=== PATIENT | female | born 1985 | race Caucasian/White ===

== ENCOUNTER 2016-08-06 00:38 | Emergency (ER) | payer SELFPAY ==
--- NOTE | 2016-08-06 02:38 | ED NURSING NOTES ---
Clinical Report - Nurses [facility] [address] [place] [address] 08/06/2016 0:42 Patient: ANNA BANEGAS [facility]#: [id number] TRIAGE Triage time 00:56 Aug 06 2016. Acuity: LEVEL 4. Chief Complaint: (left arm pain). 00:56 08/06/16. SEPSIS SCREEN: Sepsis Screen. Negative (no infection suspected/documented). ABRAHAM COMA SCORE: Abraham Coma Scale: 15- eyes open spontaneously (4); best verbal response- oriented x 4 (5); best motor response- obeys commands (6). --00:59 Aida Frost R.N. 00:56 08/06/16. BP: 129/80. HR: 73. RR: 18. O2 saturation: 100%. Temp: 98.1 F. Pain level now: 09/27. --00:59 Aida Frost R.N. Weight: 81.6 kg stated. Height/Length: 62 inches Per Patient. BMI: 32.9. --00:56 Aida Frost R.N. Medications None. --00:57 Aida Frost R.N. Medication/allergy information source: the patient. --00:59 Aida Frost R.N. Allergies No Known Drug Allergy. --00:57 Aida Frost R.N. History Arrived by private vehicle. Historian: patient. Accompanied by family and spouse. Onset. (2 months ago). ( acutely worse in last 24 hours. 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 NO trauma Patient states similar but worse than carpal tunnel she had on right side). No fever, weakness, cough, difficulty breathing or skin rash. Denies muscle aches. PAST MEDICAL HX: The patient has had a hysterectomy. SOCIAL HX: Light tobacco smoker (cigarette)- less than 1/2 a pack per day. No alcohol use or drug use. No infectious disease exposure. ABUSE ASSESSMENT: No report of abuse. NUTRITIONAL RISK ASSESSMENT: The nutritional risk assessment revealed no deficiencies. FUNCTIONAL ASSESSMENT: Functional assessment: no impairments noted. LEARNING NEEDS ASSESSMENT: The learning needs assessment revealed no barriers. SKIN INTEGRITY ASSESSMENT: Skin integrity risk assessment completed. No skin integrity risk identified. --00:59 Aida Frost R.N. PROBLEMS: Pyelonephritis. Peripheral Nerve Entrapment. --00:57 Aida Frost R.N. ADDITIONAL SURGERIES: Carpal Tunnel Surgery. . Hysterectomy. Tubal Ligation. --00:57 Aida Frost R.N. Interventions ID band on patient. --00:59 Aida Frost R.N. PHYSICAL ASSESSMENT 01:01 08/06/16. Ambulatory to room. GENERAL / NEURO / PSYCH: Alert. Oriented X 4. HEENT: Mucous membranes are pink. CVS: Pulses within normal limits. EXTREMITIES: Capillary refill is less than 2 seconds in the extremities. Extremity pulses are within normal limits. No clubbing present. SKIN: Skin intact. Skin is warm and dry. Normal skin turgor. --01:01 Aida Frost R.N. NURSING PROGRESS NOTES 01:08/06/16. The initial plan of care for this patient includes an assessment with efforts to address impairment of the musculoskeletal system. This plan of care was discussed with the patient. Patient gowned. Reassurance given. Patient identifiers checked. Call light placed in reach. Side rails up x 1. Bed placed in lowest position. Brakes of bed on. Patient ready for evaluation. --01:01 Aida Frost R.N. DISPOSITION / DISCHARGE 02:50 08/06/16. Condition at departure: improved and stable. The goals identified in the patient's plan of care were met. No learning barriers present. Reviewed medication(s) side effects, precautions, dosing and course information. Prescription(s) given to the patient (PO Toradol). Reviewed referral to an orthopedic surgeon and a hand surgeon and primary care physician for followup. Summary of care provided to patient via paper. Patient verbalized understanding. Written instructions provided in Chinese. The patient was discharged home and accompanied by spouse. She left the Emergency Department ambulatory and via private vehicle. Spouse driving. --02:50 Aida Frost R.N. 00:56 08/06/16. BP: 129/80. HR: 73. RR: 18. O2 saturation: 100%. Temp: 98.1 F. Pain level now: 09/27. --02:50 Aida Frost R.N. Locked/Released at 08/06/2016 2:51 by Aida Frost R.N.
--- NOTE | 2016-08-06 02:38 | ED CLINICAL REPORT ---
Clinical Report - Physicians/Mid Levels [facility] [address] [place] [address] 08/06/2016 0:42 [id number] Time Seen: 01:24. Arrived- By private vehicle. Historian- patient. HISTORY OF PRESENT ILLNESS Chief Complaint: UPPER EXTREMITY PAIN. This started about 2 months ago and is still present and now worse. It was gradual in onset and has been constant and waxing/waning. Severity is described as being .it has become recently worse. The quality is noted to be aching and "pain". Symptoms located in the area of the left elbow, left forearm and left hand. Repetitive hand use at work. (She describes numbness and tingling in her third fourth and fifth fingers on the left-hand side). Patient denies an injury. Similar symptoms previously: ( she had similar pain in the past on the right-hand side which was diagnosed and treated as carpal tunnel syndrome.). REVIEW OF SYSTEMS No chills, fever, sweats, calf pain or chest pain. No cough, difficulty breathing, pedal edema, palpitations or abdominal pain. No constipation, diarrhea, nausea, vomiting or urinary problems. All systems otherwise negative, except as recorded above. PAST HISTORY History of carpal tunnel syndrome. Problems: Abscess. Pyelonephritis. Pelvic Pain. Peripheral Nerve Entrapment. Abdominal Pain. Headache. Additional Surgeries: Carpal Tunnel Surgery. . Hysterectomy. Tubal Ligation. Medications: None. Allergies: No Known Drug Allergy. SOCIAL HISTORY Current every day light tobacco smoker (cigarette)- less than 1/2 a pack per day. No alcohol use or drug use. FAMILY HISTORY Denies family medical history. ADDITIONAL NOTES The nursing notes have been reviewed. PHYSICAL EXAM Vital Signs: 08/06/2016 00:56 BP: 129/80. HR: 73. RR: 18. O2 saturation: 100%. Temp: 98.1 F. Pain level now: 6/10. Have been reviewed. Appearance: Alert. No acute distress. Eyes: Pupils equal, round and reactive to light. ENT: Pharynx normal. Neck: Normal inspection. Neck supple. CVS: Normal heart rate and rhythm. Heart sounds normal. Respiratory: No respiratory distress. Breath sounds normal. Abdomen: Soft and nontender. No organomegaly. Back: Normal inspection. Extremities: Upper extremities normal to inspection. Upper extremities exhibit normal ROM. Upper extremities nontender. No upper extremity edema. Negative Tinel sign. Negative Meaghan test. Extremities otherwise negative. Neuro: Sensory deficit present. (L hand). Altered sensation to light touch on the left arm. The sensory deficit corresponds to a peripheral nerve, specifically the ulnar nerve. PROGRESS AND PROCEDURES Course of Care: Patient is stable. Patient/family counseled. Old medical records reviewed. Disposition: Discharged. Condition: stable. CLINICAL IMPRESSION Chronic upper extremity pain involving the left elbow, left forearm, left wrist and left hand (cubital tunnel syndrome). Neuropathy. INSTRUCTIONS Warnings: Further evaluation is necessary. GENERAL WARNINGS: Return or contact your physician immediately if your condition worsens or changes unexpectedly, if not improving as expected, or if other problems arise. Prescription Medications: Ketorolac 10 mg tablets: Take 1 tablet orally every 6 hours as needed. Dispense fifteen (15). No refills. Follow-up: Follow up with your doctor in seven days. Call for the next available appointment. Follow up with an orthopedic surgeon- as recommended by your primary care physician. Understanding of the discharge instructions verbalized by patient. (Electronically signed by Brayan Keller MD 08/08/2016 9:43)
--- NOTE | 2016-08-06 02:38 | ED NURSING NOTES ---
Clinical Report - Nurses [facility] [address] [place] [address] 08/06/2016 0:42 Patient: ANNA BANEGAS [facility]#: [id number] TRIAGE Triage time 00:56 Aug 06 2016. Acuity: LEVEL 4. Chief Complaint: (left arm pain). 00:56 08/06/16. SEPSIS SCREEN: Sepsis Screen. Negative (no infection suspected/documented). ABRAHAM COMA SCORE: Abraham Coma Scale: 15- eyes open spontaneously (4); best verbal response- oriented x 4 (5); best motor response- obeys commands (6). --00:59 Aida Frost R.N. 00:56 08/06/16. BP: 129/80. HR: 73. RR: 18. O2 saturation: 100%. Temp: 98.1 F. Pain level now: 09/27. --00:59 Aida Frost R.N. Weight: 81.6 kg stated. Height/Length: 62 inches Per Patient. BMI: 32.9. --00:56 Aida Frost R.N. Medications None. --00:57 Aida Frost R.N. Medication/allergy information source: the patient. --00:59 Aida Frost R.N. Allergies No Known Drug Allergy. --00:57 Aida Frost R.N. History Arrived by private vehicle. Historian: patient. Accompanied by family and spouse. Onset. (2 months ago). ( acutely worse in last 24 hours. 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 No fever, weakness, cough, difficulty breathing or skin rash. Denies muscle aches. PAST MEDICAL HX: The patient has had a hysterectomy. SOCIAL HX: Light tobacco smoker (cigarette)- less than 1/2 a pack per day. No alcohol use or drug use. No infectious disease exposure. ABUSE ASSESSMENT: No report of abuse. NUTRITIONAL RISK ASSESSMENT: The nutritional risk assessment revealed no deficiencies. FUNCTIONAL ASSESSMENT: Functional assessment: no impairments noted. LEARNING NEEDS ASSESSMENT: The learning needs assessment revealed no barriers. SKIN INTEGRITY ASSESSMENT: Skin integrity risk assessment completed. No skin integrity risk identified. --00:59 Aida Frost R.N. PROBLEMS: Pyelonephritis. Peripheral Nerve Entrapment. --00:57 Aida Frost R.N. ADDITIONAL SURGERIES: Carpal Tunnel Surgery. . Hysterectomy. Tubal Ligation. --00:57 Aida Frost R.N. Interventions ID band on patient. --00:59 Aida Frost R.N. PHYSICAL ASSESSMENT 01:01 08/06/16. Ambulatory to room. GENERAL / NEURO / PSYCH: Alert. Oriented X 4. HEENT: Mucous membranes are pink. CVS: Pulses within normal limits. EXTREMITIES: Capillary refill is less than 2 seconds in the extremities. Extremity pulses are within normal limits. No clubbing present. SKIN: Skin intact. Skin is warm and dry. Normal skin turgor. --01:01 Aida Frost R.N. NURSING PROGRESS NOTES 01:08/06/16. The initial plan of care for this patient includes an assessment with efforts to address impairment of the musculoskeletal system. This plan of care was discussed with the patient. Patient gowned. Reassurance given. Patient identifiers checked. Call light placed in reach. Side rails up x 1. Bed placed in lowest position. Brakes of bed on. Patient ready for evaluation. --01:01 Aida Frost R.N. DISPOSITION / DISCHARGE 02:50 08/06/16. Condition at departure: improved and stable. The goals identified in the patient's plan of care were met. No learning barriers present. Reviewed medication(s) side effects, precautions, dosing and course information. Prescription(s) given to the patient (PO Toradol). Reviewed referral to an orthopedic surgeon and a hand surgeon and primary care physician for followup. Summary of care provided to patient via paper. Patient verbalized understanding. Written instructions provided in Mongolian. The patient was discharged home and accompanied by spouse. She left the Emergency Department ambulatory and via private vehicle. Spouse driving. --02:50 Aida Frost R.N. 00:56 08/06/16. BP: 129/80. HR: 73. RR: 18. O2 saturation: 100%. Temp: 98.1 F. Pain level now: 09/27. --02:50 Aida Frost R.N. Locked/Released at 08/06/2016 2:51 by Aida Frost R.N.
--- NOTE | 2016-08-06 02:38 | ED CLINICAL REPORT ---
Clinical Report - Physicians/Mid Levels [facility] [address] [place] [address] 08/06/2016 0:42 [id number] Time Seen: 01:24. Arrived- By private vehicle. Historian- patient. HISTORY OF PRESENT ILLNESS Chief Complaint: UPPER EXTREMITY PAIN. This started about 2 months ago and is still present and now worse. It was gradual in onset and has been constant and waxing/waning. Severity is described as being .it has become recently worse. The quality is noted to be aching and "pain". Symptoms located in the area of the left elbow, left forearm and left hand. Repetitive hand use at work. (She describes numbness and tingling in her third fourth and fifth fingers on the left-hand side). Patient denies an injury. Similar symptoms previously: ( she had similar pain in the past on the right-hand side which was diagnosed and treated as carpal tunnel syndrome.). REVIEW OF SYSTEMS No chills, fever, sweats, calf pain or chest pain. No cough, difficulty breathing, pedal edema, palpitations or abdominal pain. No constipation, diarrhea, nausea, vomiting or urinary problems. All systems otherwise negative, except as recorded above. PAST HISTORY History of carpal tunnel syndrome. Problems: Abscess. Pyelonephritis. Pelvic Pain. Peripheral Nerve Entrapment. Abdominal Pain. Headache. Additional Surgeries: Carpal Tunnel Surgery. . Hysterectomy. Tubal Ligation. Medications: None. Allergies: No Known Drug Allergy. SOCIAL HISTORY Current every day light tobacco smoker (cigarette)- less than 1/2 a pack per day. No alcohol use or drug use. FAMILY HISTORY Denies family medical history. ADDITIONAL NOTES The nursing notes have been reviewed. PHYSICAL EXAM Vital Signs: 08/06/2016 00:56 BP: 129/80. HR: 73. RR: 18. O2 saturation: 100%. Temp: 98.1 F. Pain level now: 6/10. Have been reviewed. Appearance: Alert. No acute distress. Eyes: Pupils equal, round and reactive to light. ENT: Pharynx normal. Neck: Normal inspection. Neck supple. CVS: Normal heart rate and rhythm. Heart sounds normal. Respiratory: No respiratory distress. Breath sounds normal. Abdomen: Soft and nontender. No organomegaly. Back: Normal inspection. Extremities: Upper extremities normal to inspection. Upper extremities exhibit normal ROM. Upper extremities nontender. No upper extremity edema. Negative Tinel sign. Negative Meaghan test. Extremities otherwise negative. Neuro: Sensory deficit present. (L hand). Altered sensation to light touch on the left arm. The sensory deficit corresponds to a peripheral nerve, specifically the ulnar nerve. PROGRESS AND PROCEDURES Course of Care: Patient is stable. Patient/family counseled. Old medical records reviewed. Disposition: Discharged. Condition: stable. CLINICAL IMPRESSION Chronic upper extremity pain involving the left elbow, left forearm, left wrist and left hand (cubital tunnel syndrome). Neuropathy. INSTRUCTIONS Warnings: Further evaluation is necessary. GENERAL WARNINGS: Return or contact your physician immediately if your condition worsens or changes unexpectedly, if not improving as expected, or if other problems arise. Prescription Medications: Ketorolac 10 mg tablets: Take 1 tablet orally every 6 hours as needed. Dispense fifteen (15). No refills. Follow-up: Follow up with your doctor in seven days. Call for the next available appointment. Follow up with an orthopedic surgeon- as recommended by your primary care physician. Understanding of the discharge instructions verbalized by patient. (Electronically signed by Brayan Keller MD 08/08/2016 9:43)
--- NOTE | 2016-08-08 09:43 | ED DISCHARGE INSTRUCTIONS ---
Patient: ANNA BANEGAS General Instructions [facility] VisitID: [id number] [place] [address] 30y, F Registration Date/Time: 08/06/2016 Chronic upper extremity pain involving the left elbow, left forearm, left wrist and left hand (cubital tunnel syndrome). Neuropathy. INSTRUCTIONS Warnings: Further evaluation is necessary. GENERAL WARNINGS: Return or contact your physician immediately if your condition worsens or changes unexpectedly, if not improving as expected, or if other problems arise. Prescription Medications: Ketorolac 10 mg tablets: Take 1 tablet orally every 6 hours as needed. Dispense fifteen (15). No refills. Follow-up: Follow up with your doctor in seven days. Call for the next available appointment. Follow up with an orthopedic surgeon- as recommended by your primary care physician. Understanding of the discharge instructions verbalized by patient. ADDITIONAL INFORMATION Ulnar Nerve Palsy The ulnar nerve travels down the arm, passing along the inside of the elbow. It controls movement and feeling in the wrist and hand. Palsy of the ulnar nerve occurs when there is injury to this nerve. The most common cause of ulnar nerve palsy is leaning on the elbow for long periods of time. An elbow fracture or dislocation can also injure the nerve. There are other causes, too. Ulnar nerve palsy causes a [id number] feeling and weakness in the hand. If the condition is prolonged, the muscles of the hand become thin and tight. The fingers bend into a contracted position. Treatment of permanent nerve damage involves physical therapy to prevent tightening of the muscles of the hand. Home Care Avoid resting your weight on your elbows when sitting at a table or riding in a vehicle. If you were given a sling, wear it as directed for support. Rest the arm until you get normal feeling and strength back. Follow Up with your doctor or as advised by our staff. Get Prompt Medical Attention if any of the following occur: Increasing arm swelling or pain Numbness or weakness of the face or leg Slurred speech, confusion, trouble speaking, walking or seeing Ketorolac Tromethamine Oral tablet What is this medicine? KETOROLAC (kiel toe ROLE ak) is a non-steroidal anti-inflammatory drug (NSAID). It is used for a short while to treat moderate to severe pain, including pain after surgery. It should not be used for more than 5 days. How should I use this medicine? Take this medicine by mouth with a full glass of water. Follow the directions on the prescription label. Take your medicine at regular intervals. Do not take your medicine more often than directed. Do not take more than the recommended dose. A special MedGuide will be given to you by the pharmacist with each prescription and refill. Be sure to read this information carefully each time. Talk to your car unloader helper regarding the use of this medicine in children. While this drug may be prescribed for children as young as 16 years of age for selected conditions, precautions do apply. Patients over 65 years old may have a stronger reaction and need a smaller dose. What side effects may I notice from receiving this medicine? Side effects that you should report to your doctor or health cardiac care nurse as soon as possible: allergic reactions like skin rash, itching or hives, swelling of the face, lips, or tongue black or tarry stools breathing problems changes in vision chest pain high blood pressure nausea or vomiting redness, blistering, peeling or loosening of the skin, including inside the mouth severe abdominal pain slurred speech or weakness on one side of the body unexplained weight gain or swelling unusual bleeding or bruising unusually weak or tired yellowing of eyes or skin Side effects that usually do not require medical attention (report to your doctor or health cardiac care nurse if they continue or are bothersome): diarrhea dizziness headache heartburn What may interact with this medicine? Do not take this medicine with any of the following medications: aspirin and aspirin-like medicines cidofovir methotrexate NSAIDs, medicines for pain and inflammation, like ibuprofen or naproxen pemetrexed probenecid This medicine may also interact with the following medications: alcohol alendronate alprazolam carbamazepine cyclosporine diuretics flavocoxid fluoxetine ginkgo lithium medicines for high blood pressure like enalapril medicines that affect platelets like pentoxifylline medicines that treat or prevent blood clots like heparin, warfarin muscle relaxants phenytoin steroid medicines like prednisone or cortisone thiothixene What if I miss a dose? If you miss a dose, take it as soon as you can. If it is almost time for your next dose, take only that dose. Do not take double or extra doses. Where should I keep my medicine? Keep out of the reach of children. Store at room temperature between 20 and 25 degrees C (68 and 77 degrees F). Throw away any unused medicine after the expiration date. What should I tell my health care provider before I take this medicine? They need to know if you have any of these conditions: asthma bleeding problems like hemophilia cigarette smoker drink more than 3 alcohol containing drinks a day heart disease or circulation problems such as heart failure or leg edema (fluid retention) high blood pressure kidney disease liver disease stomach bleeding or ulcers an unusual or allergic reaction to ketorolac, aspirin, other NSAIDs, other medicines, foods, dyes, or preservatives or trying to get breast-feeding What should I watch for while using this medicine? Tell your doctor or health cardiac care nurse if your pain does not get better. Talk to your doctor before taking another medicine for pain. Do not treat yourself. This medicine does not prevent heart attack or stroke. In fact, this medicine may increase the chance of a heart attack or stroke. The chance may increase with longer use of this medicine and in people who have heart disease. If you take aspirin to prevent heart attack or stroke, talk with your doctor or health cardiac care nurse. Do not take medicines such as ibuprofen and naproxen with this medicine. Side effects such as stomach upset, nausea, or ulcers may be more likely to occur. Many medicines available without a prescription should not be taken with this medicine. This medicine can cause ulcers and bleeding in the stomach and intestines at any time during treatment. Do not smoke cigarettes or drink alcohol. These increase irritation to your stomach and can make it more susceptible to damage from this medicine. Ulcers and bleeding can happen without warning symptoms and can cause . You may get drowsy or dizzy. Do not drive, use machinery, or do anything that needs mental alertness until you know how this medicine affects you. Do not stand or sit up quickly, especially if you are an older patient. This reduces the risk of dizzy or fainting spells. This medicine can cause you to bleed more easily. Try to avoid damage to your teeth and gums when you brush or floss your teeth. You have been given the following additional information: Ulnar Nerve Palsy Ketorolac Tromethamine Oral tablet (Electronically signed by Brayan Keller MD 08/08/2016 9:43)
--- NOTE | 2016-08-08 09:43 | ED MAR SUMMARY ---
..... Medication Administration Record [facility] [address] [id number] Patient: BARNARDTRUNG JO ANNA C Visit ID: [id number] 30y, F Weight: 81.6 kg Height/Length: 62 in BMI: 32.9 ALLERGIES: No Known Drug Allergy
--- NOTE | 2016-08-08 09:43 | ED MAR SUMMARY ---
..... Medication Administration Record [facility] [address], [place] [id number] Patient: BARNARDTRUNG JO ANNA C Visit ID: [id number] 30y, F Weight: 81.6 kg Height/Length: 62 in BMI: 32.9 ALLERGIES: No Known Drug Allergy
--- NOTE | 2016-08-08 09:43 | ED DISCHARGE INSTRUCTIONS ---
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 Neuropathy. INSTRUCTIONS Warnings: Further evaluation is necessary. GENERAL WARNINGS: Return or contact your physician immediately if your condition worsens or changes unexpectedly, if not improving as expected, or if other problems arise. Prescription Medications: Ketorolac 10 mg tablets: Take 1 tablet orally every 6 hours as needed. Dispense fifteen (15). No refills. Follow-up: Follow up with your doctor in seven days. Call for the next available appointment. Follow up with an orthopedic surgeon- as recommended by your primary care physician. Understanding of the discharge instructions verbalized by patient. ADDITIONAL INFORMATION Ulnar Nerve Palsy The ulnar nerve travels down the arm, passing along the inside of the elbow. It controls movement and feeling in the wrist and hand. Palsy of the ulnar nerve occurs when there is injury to this nerve. The most common cause of ulnar nerve palsy is leaning on the elbow for long periods of time. An elbow fracture or dislocation can also injure the nerve. There are other causes, too. Ulnar nerve palsy causes a [id number] feeling and weakness in the hand. If the condition is prolonged, the muscles of the hand become thin and tight. The fingers bend into a contracted position. Treatment of permanent nerve damage involves physical therapy to prevent tightening of the muscles of the hand. Home Care Avoid resting your weight on your elbows when sitting at a table or riding in a vehicle. If you were given a sling, wear it as directed for support. Rest the arm until you get normal feeling and strength back. Follow Up with your doctor or as advised by our staff. Get Prompt Medical Attention if any of the following occur: Increasing arm swelling or pain Numbness or weakness of the face or leg Slurred speech, confusion, trouble speaking, walking or seeing Ketorolac Tromethamine Oral tablet What is this medicine? KETOROLAC (kiel toe ROLE ak) is a non-steroidal anti-inflammatory drug (NSAID). It is used for a short while to treat moderate to severe pain, including pain after surgery. It should not be used for more than 5 days. How should I use this medicine? Take this medicine by mouth with a full glass of water. Follow the directions on the prescription label. Take your medicine at regular intervals. Do not take your medicine more often than directed. Do not take more than the recommended dose. A special MedGuide will be given to you by the pharmacist with each prescription and refill. Be sure to read this information carefully each time. Talk to your specialty person regarding the use of this medicine in children. While this drug may be prescribed for children as young as 16 years of age for selected conditions, precautions do apply. Patients over 65 years old may have a stronger reaction and need a smaller dose. What side effects may I notice from receiving this medicine? Side effects that you should report to your doctor or health client care coordinator as soon as possible: allergic reactions like skin rash, itching or hives, swelling of the face, lips, or tongue black or tarry stools breathing problems changes in vision chest pain high blood pressure nausea or vomiting redness, blistering, peeling or loosening of the skin, including inside the mouth severe abdominal pain slurred speech or weakness on one side of the body unexplained weight gain or swelling unusual bleeding or bruising unusually weak or tired yellowing of eyes or skin Side effects that usually do not require medical attention (report to your doctor or health client care coordinator if they continue or are bothersome): diarrhea dizziness headache heartburn What may interact with this medicine? Do not take this medicine with any of the following medications: aspirin and aspirin-like medicines cidofovir methotrexate NSAIDs, medicines for pain and inflammation, like ibuprofen or naproxen pemetrexed probenecid This medicine may also interact with the following medications: alcohol alendronate alprazolam carbamazepine cyclosporine diuretics flavocoxid fluoxetine ginkgo lithium medicines for high blood pressure like enalapril medicines that affect platelets like pentoxifylline medicines that treat or prevent blood clots like heparin, warfarin muscle relaxants phenytoin steroid medicines like prednisone or cortisone thiothixene What if I miss a dose? If you miss a dose, take it as soon as you can. If it is almost time for your next dose, take only that dose. Do not take double or extra doses. Where should I keep my medicine? Keep out of the reach of children. Store at room temperature between 20 and 25 degrees C (68 and 77 degrees F). Throw away any unused medicine after the expiration date. What should I tell my health care provider before I take this medicine? They need to know if you have any of these conditions: asthma bleeding problems like hemophilia cigarette smoker drink more than 3 alcohol containing drinks a day heart disease or circulation problems such as heart failure or leg edema (fluid retention) high blood pressure kidney disease liver disease stomach bleeding or ulcers an unusual or allergic reaction to ketorolac, aspirin, other NSAIDs, other medicines, foods, dyes, or preservatives or trying to get breast-feeding What should I watch for while using this medicine? Tell your doctor or health client care coordinator if your pain does not get better. Talk to your doctor before taking another medicine for pain. Do not treat yourself. This medicine does not prevent heart attack or stroke. In fact, this medicine may increase the chance of a heart attack or stroke. The chance may increase with longer use of this medicine and in people who have heart disease. If you take aspirin to prevent heart attack or stroke, talk with your doctor or health client care coordinator. Do not take medicines such as ibuprofen and naproxen with this medicine. Side effects such as stomach upset, nausea, or ulcers may be more likely to occur. Many medicines available without a prescription should not be taken with this medicine. This medicine can cause ulcers and bleeding in the stomach and intestines at any time during treatment. Do not smoke cigarettes or drink alcohol. These increase irritation to your stomach and can make it more susceptible to damage from this medicine. Ulcers and bleeding can happen without warning symptoms and can cause . You may get drowsy or dizzy. Do not drive, use machinery, or do anything that needs mental alertness until you know how this medicine affects you. Do not stand or sit up quickly, especially if you are an older patient. This reduces the risk of dizzy or fainting spells. This medicine can cause you to bleed more easily. Try to avoid damage to your teeth and gums when you brush or floss your teeth. You have been given the following additional information: Ulnar Nerve Palsy Ketorolac Tromethamine Oral tablet (Electronically signed by Brayan Keller MD 08/08/2016 9:43)
--- NOTE | 2016-08-08 09:43 | ED MED RECONCILIATION SUMMARY ---
Patient: BARNARD LOPEZCYRILANNA Annette Medication Reconciliation Report [facility] VisitID: [id number] [address] [place] [address] 30y, F Registration Date/Time: 08/06/2016 Weight: 81.6 kg Height/Length: 62 in. BMI: 32.9 ALLERGIES: No Known Drug Allergy The patient's Home Medications are listed below: NONE. The source(s) of the original Home Medication information: patient The following Medications were given to the patient in the Emergency Department: None. The following Medications were prescribed to the patient: Ketorolac 10 mg tablets: Take 1 tablet orally every 6 hours as needed. Dispense fifteen (15). No refills. -- Brayan Keller MD
--- NOTE | 2016-08-08 09:43 | ED MED RECONCILIATION SUMMARY ---
Patient: BARNARD LOPEZCYRILANNA Annette Medication Reconciliation Report [facility] VisitID: [id number] [address] [place] [address] 30y, F Registration Date/Time: 08/06/2016 Weight: 81.6 kg Height/Length: 62 in. BMI: 32.9 ALLERGIES: No Known Drug Allergy The patient's Home Medications are listed below: NONE. The source(s) of the original Home Medication information: patient The following Medications were given to the patient in the Emergency Department: None. The following Medications were prescribed to the patient: Ketorolac 10 mg tablets: Take 1 tablet orally every 6 hours as needed. Dispense fifteen (15). No refills. -- Brayan Keller MD
== END 2016-08-06 02:51 | disposition home or self-care (01) ==
LOC: ED SRH 00:38
DX: M79.601 Pain in right arm (principal); G90.09 Other idiopathic peripheral autonomic neuropathy; G56.20 Lesion of ulnar nerve, unspecified upper limb; F17.210 Nicotine dependence, cigarettes, uncomplicated